=== PATIENT | male | born 2000 | race African-American/Black ===

== ENCOUNTER 2018-03-05 03:29 | Emergency (ER) | payer MEDICAID ==
[~2018-03-05] VITALS: Ht 170.2 cm; Wt 73.9 kg
[2018-03-05 03:30] VITALS: BP 142/100
[2018-03-05] MEDS ORDERED: LIDOCAINE-MPF 1%, 2ML ONE (03:39)
[2018-03-05] MEDS ORDERED: DIPH,PERTUSS(ACELL),TET VAC/PF 0.5 ML IM-VACC ONE ×2 (04:00→04:26)
[2018-03-05] MEDS ORDERED: LIDOCAINE-MPF 1%, 2ML INFIL ONE (04:00)
[2018-03-05] MEDS ORDERED: ONDANSETRON ODT 4 MG ONE (04:10)
[2018-03-05] MEDS ORDERED: BACITRACIN ZINC OINT 500U/GM, 0.9 GM ONE (04:27)
== END 2018-03-05 04:56 | disposition home or self-care (01) ==
LOC: ED 04:45
DX: S06.0X0A Concussion without loss of consciousness, initial encounter (principal); S01.01XA Laceration without foreign body of scalp, initial encounter; S01.81XA Laceration without foreign body of other part of head, initial encounter; W22.8XXA Striking against or struck by other objects, initial encounter; Y93.01 Activity, walking, marching and hiking; Y92.488 Other paved roadways as the place of occurrence of the external cause; Y99.8 Other external cause status
CPT/HCPCS: 12052; 70450; 72125; 90471; 90715

== ENCOUNTER 2020-08-07 10:44 | Emergency (ER) | payer SELFPAY ==
[~2020-08-07] VITALS: Ht 167.6 cm; Wt 84.1 kg
[2020-08-07 11:02] VITALS: BP 142/85
--- NOTE | 2020-08-07 12:14 | NUR ---
PT AMBULATED BACK TO ROOM FROM LOBBY.
[2020-08-07] MEDS ORDERED: BUPIVACAINE/PF-EPI 0.25% 1:200K SQ ONE (12:30)
[2020-08-07] MEDS ORDERED: LIDOCAINE-MPF 1%, 5ML INFIL ONE (12:30)
[2020-08-07] MEDS ORDERED: LIDOCAINE-MPF 1%, 2ML ONE (12:32)
[2020-08-07] MEDS ORDERED: BUPIVACAINE 0.25% ONE (12:33)
== END 2020-08-07 13:07 | disposition home or self-care (01) ==
LOC: ED 12:15
DX: L60.0 Ingrowing nail (principal); M79.674 Pain in right toe(s)
CPT/HCPCS: 64450; 99284

== ENCOUNTER 2020-10-02 12:34 | Emergency (ER) | payer SELFPAY ==
[~2020-10-02] VITALS: Ht 167.6 cm; Wt 83.2 kg
--- NOTE | 2020-10-02 13:19 | NUR ---
ERMD AT BEDSIDE FOR EVALUATION.
--- NOTE | 2020-10-02 13:22 | NUR ---
PATIENT WALKED BACK FROM [facility] WITH CHIEF C/O SORE THROAT X3 DAYS. PATIENT DENIES FEVER, COUGH, N/V/D. PATIENT STATES HE HAS CHILLS. PAIN LEVEL IN THROAT IS A 7/10 BUT WHEN PATIENT EATS IT GOES UP TO A 8/10. NADN, PATIENT SWABBED FOR STREP BY ERMD. CALL LIGHT WITHIN REACH.
[2020-10-02] MEDS ORDERED: DEXAMETHASONE 4 MG TABLET PO ONE (14:00)
[2020-10-02] MEDS ORDERED: DEXAMETHASONE 4 MG TABLET ONE (14:17)
[2020-10-02 14:36] VITALS: BP 122/68
== END 2020-10-02 14:43 | disposition home or self-care (01) ==
LOC: ED 14:40
DX: J02.8 Acute pharyngitis due to other specified organisms (principal); R50.9 Fever, unspecified; R51.9 Headache, unspecified
CPT/HCPCS: 87081; 87880; 99283